=== PATIENT | female | born 1975 | race Caucasian/White ===

== ENCOUNTER 2020-02-20 15:59 | Emergency (ER) | payer SELFPAY ==
[~2020-02-20] VITALS: Ht 177.8 cm; Wt 69.4 kg
[2020-02-20 16:21] VITALS: BP 130/77
== END 2020-02-20 17:45 | disposition home or self-care (01) ==
LOC: ER 15:59
DX: S21.201A Unspecified open wound of right back wall of thorax without penetration into thoracic cavity, initial encounter (principal); Z88.0 Allergy status to penicillin; X58.XXXA Exposure to other specified factors, initial encounter; Y93.89 Activity, other specified; Y99.8 Other external cause status; Y92.89 Other specified places as the place of occurrence of the external cause